=== PATIENT | female | born 1985 | race Two or more races ===

== ENCOUNTER 2020-05-08 15:13 | Emergency (ER) | payer MEDICAID ==
[~2020-05-08] VITALS: Ht 152.4 cm; Wt 56.7 kg
--- NOTE | 2020-05-08 15:30 | NUR ---
ED Nurse Note: Pt ambulated to ED from work today with c/o dizziness, lightheadedness and blurry vision on bilateral peripherals that got worsen today. Pt is AOx4, calm and cooperative to care, VSS, on RA, afebrile on triage. Pt was placed on bed and gown; hooked to director cardiac. Pt denies any hx of migraines nor any eye problems. Will continue to monitor.
[2020-05-08 15:55] LABS: BASOPHILS % (AUTO) 0.8 % (0.0-2.0); EOSINOPHILS % (AUTO) 2.3 % (0.0-3.0); HEMATOCRIT 37.3 % (37.0-47.0); HEMOGLOBIN 12.8 G/DL (12.0-16.0); LYMPHOCYTES % (AUTO) 27.4 % (20.0-45.0); MEAN CORPUSCULAR VOLUME 91 FL (80-99); MONOCYTES % (AUTO) 5.2 % (1.0-10.0); NEUTROPHILS % (AUTO) 64.3 % (45.0-75.0); PLATELET COUNT 260 K/UL (150-450); RED CELL DISTRIBUTION WIDTH 11.5 % (11.6-14.8); WHITE BLOOD COUNT 6.6 K/UL (4.8-10.8)
[2020-05-08 15:56] VITALS: BP 138/88
[2020-05-08 15:58] LABS: APPEARANCE,URINE CLEAR; BILIRUBIN, URINE NEGATIVE (NEGATIVE); COLOR,URINE PALE YELLOW; GLUCOSE, URINE (UA) NEGATIVE (NEGATIVE); KETONES,URINE NEGATIVE (NEGATIVE); LEUKOCYTE ESTERASE ,URINE NEGATIVE (NEGATIVE); NITRITE,URINE NEGATIVE (NEGATIVE); PH,URINE 6.5 (4.5-8.0); PROTEIN,URINE NEGATIVE (NEGATIVE); UROBILINOGEN,URINE NORMAL MG/DL (0.0-1.0)
[2020-05-08 16:07] LABS: ANION GAP 6 mmol/L (5-15); BLOOD UREA NITROGEN 13 mg/dL (7-18); CALCIUM 8.4 MG/DL (8.5-10.1); CARBON DIOXIDE 30 MMOL/L (21-32); CHLORIDE 104 MMOL/L (98-107); CREATININE 0.8 MG/DL (0.55-1.30); POTASSIUM 3.2 MMOL/L (3.5-5.1); SODIUM 140 MMOL/L (136-145)
[2020-05-08 16:11] LABS: ALANINE AMINOTRANSFERASE 22 U/L (12-78); ALBUMIN 3.6 G/DL (3.4-5.0); ALBUMIN/GLOBULIN RATIO 0.9 (1.0-2.7); ALKALINE PHOSPHATASE 69 U/L (46-116); ASPARTATE AMINO TRANSFERASE 19 U/L (15-37); BILIRUBIN,TOTAL 0.3 MG/DL (0.2-1.0)
--- NOTE | 2020-05-08 16:25 | NUR ---
ED Nurse Note: Pt returned from CT on stable condition.
--- NOTE | 2020-05-08 16:46 | Emergency Room Report ---
History of Present Illness General Chief Complaint: Dizziness Source: Patient Present Illness HPI 34 YO female presents to the ED c/o episode of ALFONSO, feeling light headed and having blurry vision x 45 minutes which spontaneously resolved earlier today while at work. Pt. also reports similar symptoms occurred yesterday while at home but lasted no more than 2 minutes. Pt. denies nausea, vomiting, syncope, neck pain/ stiffness or photophobia. Pt. denies loss of vision. She describes everything looking cloudy. She denies hx of ALFONSO's. She denies sudden onset. She reports right sided constant and dull. Pt. reports being on her period and having 2 days of heavy bleeding. She reports she normally has a light flow. She denies fevers, chills, or sweating. She denies paresthesias. She denies diff iculty with speech or having any weakness. She denies . Denies cardiac hx. reports no Pmhx. Allergies: Coded Allergies: No Known Allergies (Unverified , 05/08/20) COVID-19 Screening Contact w/high risk pt: No Experienced COVID-19 symptoms?: No COVID-19 Testing performed [employer]RE [employer]CH[employer]ICIAN B: No Patient History Past Medical History: see triage record Past Surgical History: none Pertinent Family History: none Last Menstrual Period: currently Now: No Reviewed Nursing Documentation: PMH: Agreed; PSxH: Agreed Nursing Documentation-PMH Past Medical History: No Stated History Review of Systems All Other Systems: negative except mentioned in HPI Physical Exam Vital Signs Date Time Temp Pulse Resp B/P (MAP) Pulse Ox O2 Delivery O2 Flow Rate FiO2 05/08/20 15:15 98.2 61 18 138/88 (105) 96 Room Air Sp02 EP Interpretation: reviewed, normal General Appearance: no apparent distress, alert, GCS 15, non-toxic Head: normocephalic, atraumatic Eyes: bilateral eye normal inspection, bilateral eye PERRL, bilateral eye other - normal visual field testing. no photophobia ENT: hearing grossly normal, normal voice Neck: full range of motion, no meningismus, no bony tend Respiratory: chest non-tender, lungs clear, normal breath sounds, no wheezing, speaking full sentences Cardiovascular #1: regular rate, rhythm, no edema Musculoskeletal: back normal, normal range of motion, gait/station normal, non- tender Neurologic: alert, motor strength/tone normal, oriented x3, sensory intact, cerebellar normal, responsive, speech normal, normal gait, no pronator, grossly normal, no focal defects Psychiatric: judgement/insight normal Skin: normal color Medical Decision Making PA Attestation Dr. Velásquez Is my supervising Physician whom patient management has been discussed with. Diagnostic Impression: Primary Impression: Dizziness Additional Impression: Headache Qualified Codes: R51.9 - Headache, unspecified ER Course 34 YO female presents to the ED c/o episode of ALFONSO, feeling light headed and having blurry vision x 45 minutes which spontaneously resolved earlier today while at work. Pt. also reports similar symptoms occurred yesterday while at home but lasted no more than 2 minutes. Pt. denies nausea, vomiting, syncope, neck pain/ stiffness or photophobia. Pt. denies loss of vision. She describes everything looking cloudy. She denies hx of ALFONSO's. She denies sudden onset. She reports right sided constant and dull. Pt. reports being on her period and having 2 days of heavy bleeding. She reports she normally has a light flow. She denies fevers, chills, or sweating. She denies paresthesias. She denies difficulty with speech or having any weakness. She denies . Denies cardiac hx. reports no Pmhx. Ddx considered but are not limited to Mnire's, BPPV, labyrinthitis, cerebellar stroke, hypovolemia, cardiac cause. Vital signs: are WNL, pt. is afebrile H&PE are most consistent with : Normal MSE. No focal deficit to indicate TIA or CVA. NO weakness. No vertical nystagmus. ORDERS: -CT head no contrast- negative for ICH, EDEMA, or mass -CBC:WNL -CMP: potassium of 3.2 otherwise wnl -Troponins, WNL -UDS: Negative -UA: WNL -Urine Hcg: . negative ED INTERVENTIONS: - 1 liter NS -40Meq KcL --Discussed with the patient the results of her imaging and blood work. She is given a copy of her imaging and EKG to take with her follow up appointments. Patient reports she feels much better after IV hydration. Patient is given ED return precautions for worsening or new symptoms. She has been instructed to increase oral rehydration at home. DISCHARGE: At this time pt. is stable for d/c to home. Will provide printed patient care instructions, and any necessary prescriptions. Care plan and follow up instructions have been discussed with the patient prior to discharge. Labs Test 05/08/20 15:33 White Blood Count 6.6 K/UL (4.8-10.8) Red Blood Count 4.10 M/UL (4.20-5.40) Hemoglobin 12.8 G/DL (12.0-16.0) Hematocrit 37.3 % (37.0-47.0) Mean Corpuscular Volume 91 FL (80-99) Mean Corpuscular Hemoglobin 31.3 PG (27.0-31.0) Mean Corpuscular Hemoglobin Concent 34.4 G/DL (32.0-36.0) Red Cell Distribution Width 11.5 % (11.6-14.8) Platelet Count 260 K/UL (150-450) Mean Platelet Volume 6.8 FL (6.5-10.1) Neutrophils (%) (Auto) 64.3 % (45.0-75.0) Lymphocytes (%) (Auto) 27.4 % (20.0-45.0) Monocytes (%) (Auto) 5.2 % (1.0-10.0) Eosinophils (%) (Auto) 2.3 % (0.0-3.0) Basophils (%) (Auto) 0.8 % (0.0-2.0) Urine Color Pale yellow Urine Appearance Clear Urine pH 6.5 (4.5-8.0) Urine Specific [place] 1.005 (1.005-1.035) Urine Protein Negative (NEGATIVE) Urine Glucose (UA) Negative (NEGATIVE) Urine Ketones Negative (NEGATIVE) Urine Blood 5+ (NEGATIVE) Urine Nitrite Negative (NEGATIVE) Urine Bilirubin Negative (NEGATIVE) Urine Urobilinogen Normal MG/DL (0.0-1.0) Urine Leukocyte Esterase Negative (NEGATIVE) Urine RBC 10-15 /HPF (0 - 2) Urine WBC 0 /HPF (0 - 2) Urine Squamous Epithelial Cells Many /LPF (NONE/OCC) Urine Bacteria Few /HPF (NONE) Urine HCG, Qualitative Negative (NEGATIVE) Sodium Level 140 MMOL/L (136-145) Potassium Level 3.2 MMOL/L (3.5-5.1) Chloride Level 104 MMOL/L (98-107) Carbon Dioxide Level 30 MMOL/L (21-32) Anion Gap 6 mmol/L (5-15) Blood Urea Nitrogen 13 mg/dL (7-18) Creatinine 0.8 MG/DL (0.55-1.30) Estimat Glomerular Filtration Rate > 60 mL/min (>60) Glucose Level 96 MG/DL (74-106) Calcium Level 8.4 MG/DL (8.5-10.1) Total Bilirubin 0.3 MG/DL (0.2-1.0) Aspartate Amino Transf (AST/SGOT) 19 U/L (15-37) Alanine Aminotransferase (ALT/SGPT) 22 U/L (12-78) Alkaline Phosphatase 69 U/L (46-116) Troponin I 0.000 ng/mL (0.000-0.056) Total Protein 7.7 G/DL (6.4-8.2) Albumin 3.6 G/DL (3.4-5.0) Globulin 4.1 g/dL Albumin/Globulin Ratio 0.9 (1.0-2.7) Urine Opiates Screen Negative (NEGATIVE) Urine Barbiturates Screen Negative (NEGATIVE) Phencyclidine (PCP) Screen Negative (NEGATIVE) Urine Amphetamines Screen Negative (NEGATIVE) Urine Benzodiazepines Screen Negative (NEGATIVE) Urine Cocaine Screen Negative (NEGATIVE) Urine Marijuana (THC) Screen Negative (NEGATIVE) EKG Diagnostic Results Troponin ordered: Yes When was troponin ordered?: May 08, 2020 EKG Time: 15:44 Rate: bradycardiac - 56 Rhythm: NSR ST Segments: no acute changes ASA given to the pt in ED: No PA Scribe Text This Interpretation was scribed by RAMOS Heath. CT/MRI/US Diagnostic Results CT/MRI/US Diagnostic Results : Imaging Test Ordered: CT head no contrast Impression " IMPRESSION: No acute intracranial abnormality." --Per official radiology report- Please see report for specific details. Last Vital Signs Date Time Temp Pulse Resp B/P (MAP) Pulse Ox O2 Delivery O2 Flow Rate FiO2 05/08/20 15:56 61 18 Room Air 05/08/20 15:56 98.2 138/88 96 Status: improved Disposition: HOME, SELF-CARE Condition: Stable Scripts Aspirin/Acetaminophen/Caffeine (EXCEDRIN MIGRAINE GELTAB) 1 Each Tablet 1 EACH PO Q6HR, #30 TAB Prov: Missy Heath 05/08/20 Referrals: NOT CHOSEN IPA/,REFERRING (PCP) Patient Instructions: Dizziness Additional Instructions: Take medications as directed. Follow up with a Primary Care Provider in 3-5 days For a referral to have NEUROLOGIST Evaluation, even if your symptoms have resolved. --Please review list of primary care clinics, if you do not already have a primary care provider Return sooner to ED if new symptoms occur, or current symptoms become worse. - Please note that this Emergency Department Report was dictated using [employer] carrier technology software, occasionally this can lead to erroneous entry secondary to interpretation by the dictation equipment. Missy Heath May 08, 2020 16:46
--- NOTE | 2020-05-08 18:07 | Diagnostic Imaging Report ---
EXAM: CT Head Without Intravenous Contrast CLINICAL HISTORY: PAIN TECHNIQUE: Axial computed tomography images of the head/brain without intravenous contrast. CTDI is 53.4 mGy and DLP is 913.6 mGy-cm. One or more of the following dose reduction techniques were used: automated exposure control, adjustment of the mA and/or kV according to patient size, use of iterative reconstruction technique. COMPARISON: No relevant prior studies available. FINDINGS: Brain: Unremarkable. No hemorrhage. No edema. Ventricles: Unremarkable. Bones/joints: Unremarkable. No acute fracture. Soft tissues: Unremarkable. Sinuses: Unremarkable as visualized. Mastoid air cells: Unremarkable as visualized. IMPRESSION: No acute intracranial abnormality.
[2020-05-08] MEDS ORDERED: Ketorolac 30mg Inj IV ONE (18:30)
[2020-05-08] MEDS ORDERED: EXCEDRIN MIGRA1 EACH PO (18:38)
[2020-05-08 18:47] VITALS: BP 136/85
--- NOTE | 2020-05-08 18:47 | NUR ---
ER DISCHARGE NOTE: Patient is cleared to be discharged per ERPA, pt is aox4, on room air, with stable vital signs. pt was given dc and prescription instructions, pt was able to verbalize understanding, pt id band and iv site removed without complications. pt is able to ambulate with steady gait. pt took all belongings.
--- NOTE | 2020-05-09 15:10 | Cardiology Report ---
APPROVED REPORT EKG Measurement Heart [id number] VT [id number] <Conclusion> Sinus bradycardia Otherwise normal ECG
== END 2020-05-08 18:47 | disposition home or self-care (01) ==
LOC: EMR 15:45
DX: R51.9 Headache, unspecified (principal); R42 Dizziness and giddiness; H53.8 Other visual disturbances; N93.9 Abnormal uterine and vaginal bleeding, unspecified
CPT/HCPCS: 36415; 70450; 80053; 80307; 81003; 81025; 84484; 85025; 93005; 96361; 96374; J1885; J7030; Z7502; 99284; J8499